=== PATIENT | female | born 1975 | race Caucasian/White ===

== ENCOUNTER → 2019-04-24 | Outpatient (CLI) | payer BC ==
[~2019-04-24] MED LIST: GADOBUTROL 7.5 MMOL/7.5 ML (GADAVIST) VIAL IV ONE; IOHEXOL 240 MGI/ML 20 ML (OMNIPAQUE) VIAL IV ONE
--- NOTE | 2019-04-24 13:36 | Diagnostic Imaging Report ---
MRI RT UPPER EXT WITH CON TECHNIQUE: Multiplanar, multisequence MR imaging of the right shoulder was performed with intra-articular contrast. COMPARISON: MRI shoulder from 11/03/2015. INDICATION: Right shoulder pain. Prior labral repair. FINDINGS: Rotator cuff: No rotator cuff tear, muscle atrophy, or edema. Glenoid labrum: Recurrent versus residual superior labral tear at the chondrolabral junction. There is also intrasubstance tearing within the superior labrum. Long head of biceps: The intracapsular segment of the long head of the biceps is poorly defined and may be torn versus having undergone tenotomy. Bones and cartilage: Chronic mildly impacted Hill-Sachs deformity in the posterosuperior humeral head. There is a small amount of edema inferior to the Hill-Sachs deformity, which could represent bone contusion if there is recurrent dislocation. No glenohumeral chondromalacia. The acromioclavicular joint is normal in alignment without significant degenerative change. Soft tissues: No proliferative synovitis or loose bodies in the glenohumeral joint. No MRI findings to suggest adhesive capsulitis. No fluid or inflammatory like signal within the subacromial/subdeltoid space to indicate bursitis. IMPRESSION: 1. Recurrent/residual superior labral tear. 2. Long head of biceps has likely undergone tenotomy or is torn. 3. No rotator cuff tear. 4. Old small Hill-Sachs deformity in the humeral head. A small amount of surrounding edema may relate to contusion if there is recent recurrent dislocation. Dictated by: Dictated on workstation # [id number]
--- NOTE | 2019-04-24 21:01 | Diagnostic Imaging Report ---
INDICATION: Right shoulder instability. Patient was brought to the fluoroscopy suite, placed on table in supine position. The skin of the right shoulder was prepped and draped in usual sterile fashion. Small amount of 1% lidocaine was utilized for local anesthesia. 21-gauge needle was advanced into the right shoulder at the rotator interval. 50 mL solution of iodinated contrast, normal saline and gadolinium was injected under fluoroscopic observation. Needle was removed and hemostasis was obtained. 18 seconds of fluoroscopy was utilized. IMPRESSION: Successful right shoulder injection of gadolinium contrast solution for MRI, using fluoroscopy. Dictated by: Dictated on workstation # [id number]
== END ==
LOC: RAD 09:17
PROVIDERS: ATTEND Nurse Practitioner
DX: S43.491A Other sprain of right shoulder joint, initial encounter (principal); M21.821 Other specified acquired deformities of right upper arm; M25.311 Other instability, right shoulder; Z98.890 Other specified postprocedural states
CPT/HCPCS: 23350; 73040; 73219